=== PATIENT | female | born 1940 | race African-American/Black ===

== ENCOUNTER 2018-03-04 16:48 | Emergency (ER) | payer MEDICARE ==
[2018-03-04] MEDS: oxyCODONE/APAP 5/325 1 TAB TABLET PO (17:59)
== END 2018-03-04 20:15 | disposition home or self-care (01) ==
LOC: ER 20:15
DX: M84.374A Stress fracture, right foot, initial encounter for fracture (principal); I87.2 Venous insufficiency (chronic) (peripheral); E11.40 Type 2 diabetes mellitus with diabetic neuropathy, unspecified; I10 Essential (primary) hypertension; Z90.49 Acquired absence of other specified parts of digestive tract; Z90.710 Acquired absence of both cervix and uterus; Z98.51 Tubal ligation status; Z88.8 Allergy status to other drugs, medicaments and biological substances; X58.XXXA Exposure to other specified factors, initial encounter; Y93.89 Activity, other specified; Y92.89 Other specified places as the place of occurrence of the external cause; Y99.8 Other external cause status
CPT/HCPCS: 29515; 73630; 93005; 93970; 99284

== ENCOUNTER 2020-06-15 12:22 | Emergency (ER) | payer MEDICARE ==
[~2020-06-15] VITALS: Ht 160 cm; Wt 102.0 kg
[~2020-06-15 12:22] MED LIST: AMOX1TAB58 PO; BIOT1TAB2 PO; CEFD300C PO; CELE200C PO; CHOL20009 PO; CYCL10TA2 PO; FERR325T14 PO; FLUC100T7 PO; GABA-585 PO; GABA600T7 PO; HYDR-2145 PO; HYDR-3164 PO; HYDR12.575 PO; LACT1CAP19 PO; LINE600T12 PO; METF500T16 PO; METF500T25 PO; METH4TAB7 PO; OLME1TAB21 PO; OLME20TA17 PO; OXYC-317 PO; OXYC1TAB8 PO; SIMV20TA18 PO; TRAM50TA PO; VITA400C11 PO; WARF5TAB2 PO
[2020-06-15 13:41] LABS: BASO # 0.1 x10^3/uL (0.0-0.2); BASO % 1 % (0-3); EOS # 0.2 x10^3/uL (0.0-0.7); EOS % 2 % (0-3); HEMOGLOBIN 10.1 g/dL (12.0-15.5); LYMPH # 2.7 x10^3/uL (1.0-4.8); LYMPH % 27 % (24-48); MEAN CORPUSCULAR HEMOGLOBIN 28 pg (25-35); MEAN CORPUSCULAR HGB CONC 33 g/dL (31-37); MEAN CORPUSCULAR VOLUME 86 fL (79-100); MONO # 0.9 x10^3/uL (0.0-1.1); MONO % 9 % (0-9); NEUT # 6.1 x10^3/uL (1.8-7.7); NEUT % 61 % (31-73); PLATELET COUNT 382 x10^3/uL (140-400); RED BLOOD COUNT 3.62 x10^6/uL (3.50-5.40); RED CELL DISTRIBUTION WIDTH 14.1 % (11.5-14.5); WHITE BLOOD COUNT 10.1 x10^3/uL (4.0-11.0)
[2020-06-15 13:54] LABS: CALCIUM 10.2 mg/dL (8.5-10.1); CREATININE 1.2 mg/dL (0.6-1.0); GFR 52.6; POTASSIUM 3.9 mmol/L (3.5-5.1)
[2020-06-15 14:01] LABS: ALBUMIN 3.3 g/dL (3.4-5.0); ALBUMIN/GLOBULIN RATIO 0.8 (1.0-1.7); C-REACTIVE PROTEIN 59.2 mg/L (0-3.3); TOTAL BILIRUBIN 0.4 mg/dL (0.2-1.0); TOTAL PROTEIN 7.3 g/dL (6.4-8.2)
[2020-06-15] MEDS ORDERED: MORPHINE SULFATE 10 MG/ML VIAL. IV ONE (14:15)
[2020-06-15] MEDS ORDERED: CONTRAST GIVEN. MC PRN (14:45)
[2020-06-15] MEDS ORDERED: IOHEXOL 350 MG/ML 100 ML VIAL. IV ONE (14:45)
--- NOTE | 2020-06-15 14:49 | EKG ---
[facility] [address] [place] [address] Test Date: 2020-06-15 Test Time: 12:42:09 Pat Name: RAVI SINGLETARY Department: Room: Gender: F Production Maintenance Technician: : 1940 Requested By: ELIJAH FARIAS Order Number: [id number] Reading MD: Measurements Intervals [place] Rate: 77 P: 49 ND: 136 QRS: 62 QRSD: 80 T: 36 QT: 382 QTc: 434 Interpretive Statements SINUS RHYTHM OTHERWISE NORMAL ECG RI6.02 No previous ECG available for comparison
--- NOTE | 2020-06-15 14:51 | ED.ADGEN ---
Past Medical History Past Medical History: Diabetes-Type II, Hypertension, Other Additional Past Medical Histor: neuropathy Past Surgical History: Hysterectomy, Tonsillectomy, Tubal ligation, Other Additional Past Surgical Histo: total Rt knee, discectomy, cyst on head, uvula Smoking Status: Never Smoker Alcohol Use: None Drug Use: None General Adult EDM: Chief Complaint: SHORTNESS OF BREATH HPI: HPI: Patient is a 80-year-old female who presents to the emergency room complaining of left leg swelling and pain as well as shortness of breath. Patient had a knee replacement 2 weeks ago. She states that the swelling is gone down since surgery. She continues to wear CORDELIA hose. She states this is worse than her replacement on the right side. She ran out of her pain medicine this morning and the pain has been unbearable. She called her orthopedic surgeon who recommended she come to the emergency room for pain management and evaluation for DVT and pulmonary embolism. She did have significant shortness of breath when she got up and try to move around earlier today. Her shortness of breath is somewhat better at this time. She denies any cough or shortness of breath. She has not had any abdominal pain, nausea, vomiting, headaches, sore throat. Review of Systems: Review of Systems: Complete ROS is negative unless otherwise documented in HPI Current Medications: Current Medications Medications (Trade) Dose Ordered Sig/Karolyn Start Time Stop Time Status Last Admin Dose Admin Info (CONTRAST GIVEN -- Rx MONITORING) 1 each PRN DAILY PRN 06/15/20 14:45 06/17/20 14:44 Iohexol (Omnipaque 350 Mg/ml) 80 ml 1X ONCE 06/15/20 14:45 06/15/20 14:46 DC 06/15/20 15:10 80 ML Morphine Sulfate (Morphine Sulfate) 5 mg 1X ONCE 06/15/20 14:15 06/15/20 14:16 DC 06/15/20 15:22 5 MG Allergies: Allergies: Allergies Coded Allergies Type Severity Reaction Last Updated Verified amlodipine Allergy Severe Swelling 06/21/14 Yes lisinopril Allergy Severe Swelling 06/21/14 Yes Physical Exam: PE: General: Awake, alert, NAD. Well Nourished, well hydrated. Cooperative HEENT: Atraumatic, EOMI, PERRL, airway patent, moist oral mucosa Neck: Supple, trachea midline Respiratory: CTA bilaterally, normal effort, no wheezing/crackles CV: RRR, no murmur, cap refill <2 GI: Soft, nondistended, nontender, no masses MSK: Left knee: Bandages in place from surgery, swelling noted Skin: Warm, dry, intact Neuro: A&O x3, speech NL, sensory and motor grossly intact, no focal deficits Psych: Normal affect, normal mood, not suicidal or homicidal Current Patient Data: Labs: Laboratory Tests Test 06/15/20 12:42 06/15/20 13:35 White Blood Count 10.1 x10^3/uL (4.0-11.0) Red Blood Count 3.62 x10^6/uL (3.50-5.40) Hemoglobin 10.1 g/dL (12.0-15.5) L Hematocrit 31.0 % (36.0-47.0) L Mean Corpuscular Volume 86 fL (79-100) Mean Corpuscular Hemoglobin 28 pg (25-35) Mean Corpuscular Hemoglobin Concent 33 g/dL (31-37) Red Cell Distribution Width 14.1 % (11.5-14.5) Platelet Count 382 x10^3/uL (140-400) Neutrophils (%) (Auto) 61 % (31-73) Lymphocytes (%) (Auto) 27 % (24-48) Monocytes (%) (Auto) 9 % (0-9) Eosinophils (%) (Auto) 2 % (0-3) Basophils (%) (Auto) 1 % (0-3) Neutrophils # (Auto) 6.1 x10^3/uL (1.8-7.7) Lymphocytes # (Auto) 2.7 x10^3/uL (1.0-4.8) Monocytes # (Auto) 0.9 x10^3/uL (0.0-1.1) Eosinophils # (Auto) 0.2 x10^3/uL (0.0-0.7) Basophils # (Auto) 0.1 x10^3/uL (0.0-0.2) Sodium Level 138 mmol/L (136-145) Potassium Level 3.9 mmol/L (3.5-5.1) Chloride Level 100 mmol/L (98-107) Carbon Dioxide Level 26 mmol/L (21-32) Anion Gap 12 (6-14) Blood Urea Nitrogen 28 mg/dL (7-20) H Creatinine 1.2 mg/dL (0.6-1.0) H Estimated GFR (Cockcroft-Gault) 52.6 BUN/Creatinine Ratio 23 (6-20) H Glucose Level 131 mg/dL (70-99) H Calcium Level 10.2 mg/dL (8.5-10.1) H Total Bilirubin 0.4 mg/dL (0.2-1.0) Aspartate Amino Transferase (AST) 19 U/L (15-37) Alanine Aminotransferase (ALT) 20 U/L (14-59) Alkaline Phosphatase 64 U/L (46-116) Lactate Dehydrogenase 289 U/L (81-234) H Creatine Kinase 120 U/L (26-192) Troponin I Quantitative < 0.017 ng/mL (0.000-0.055) C-Reactive Protein, Quantitative 59.2 mg/L (0-3.3) H YD-Tlh-Z-Type Natriuretic Peptide 91 pg/mL (0-449) Total Protein 7.3 g/dL (6.4-8.2) Albumin 3.3 g/dL (3.4-5.0) L Albumin/Globulin Ratio 0.8 (1.0-1.7) L Urine Collection Type Unknown Urine Color Yellow Urine Clarity Clear Urine pH 7.0 (<5.0-8.0) Urine Specific [place] 1.010 (1.000-1.030) Urine Protein Negative mg/dL (NEG-TRACE) Urine Glucose (UA) Negative mg/dL (NEG) Urine Ketones (Stick) Negative mg/dL (NEG) Urine Blood Negative (NEG) Urine Nitrite Negative (NEG) Urine Bilirubin Negative (NEG) Urine Urobilinogen Dipstick 0.2 mg/dL (0.2 mg/dL) Urine Leukocyte Esterase Small (NEG) Urine RBC 0 /HPF (0-2) Urine WBC 5-10 /HPF (0-4) Urine Squamous Epithelial Cells Few /LPF Urine Bacteria 0 /HPF (0-FEW) Laboratory Tests 06/15/20 12:42 Laboratory Tests 06/15/20 12:42 Vital Signs: Vital Signs Date Time Temp Pulse Resp B/P (MAP) Pulse Ox O2 Delivery O2 Flow Rate FiO2 06/15/20 15:22 18 98 Room Air 06/15/20 12:25 98.2 76 154/69 (97) 98.2 EKG: EKG: [] Heart Score: Risk Factors: Risk Factors: DM, Current or recent (<one month) smoker, HTN, HLP, family history of CAD, obesity. Risk Scores: Score 0 - 3: 2.5% MACE over next 6 weeks - Discharge Home Score 4 - 6: 20.3% MACE over next 6 weeks - Admit for Clinical Observation Score 7 - 10: 72.7% MACE over next 6 weeks - Early Invasive Strategies Radiology/Procedures: Radiology/Procedures: [] Course & Med Decision Making: Course & Med Decision Making Pertinent Labs and Imaging studies reviewed. (See chart for details) Patient is 80-year-old female presents to the emergency room with swelling to her leg, pain, and shortness of breath after surgery 2 weeks ago[address] Ul[address] and CT angio will be ordered to evaluate for blood clots. She was treated with morphine for pain. Basic labs were also ordered. Patient also has urinary complaints and UA was ordered. Work-up was unremarkable. Patient is feeling significantly better. We will discharge her home and she will follow up with orthopedic surgery on Tuesday. Will prescribe her short prescription of oxycodone until she can see her orthopedic surgeon as they sent her here for pain medication. Patient's test results and vitals while in the ED were fully reviewed and discussed with the patient. Patient is stable and at this time does not need admission to the hospital. We have discussed strict return precautions and the importance of following up with their Primary Care Physician. Patient stated understanding and was given an opportunity to ask any questions. Patient is in agreement with plan. Rhianna Disclaimer: Rhianna Disclaimer: This electronic medical record was generated, in whole or in part, using a voice recognition dictation system. Departure Departure Impression: Primary Impression: Post-op pain Additional Impression: Shortness of breath Disposition: 01 DC HOME SELF CARE/HOMELESS Condition: STABLE Referrals: DAISHA PLEITEZ D.O. (PCP) Patient Instructions: Pain Relief Preoperatively and Postoperatively Scripts Albuterol Sulfate (VENTOLIN HFA INHALER) 18 Gm Hfa.aer.ad 2 PUFF INH QID for FOR ASTHMA, #1 INHALER 0 Refills Prov: ELIJAH FARIAS MD 06/15/20 Oxycodone Hcl (OXYCODONE HCL) 5 Mg Capsule 5 MG PO PRN Q6HRS PRN for PAIN, #16 TAB 0 Refills Prov: ELIJAH FARIAS MD 06/15/20 Problem Qualifiers ELIJAH FARIAS MD Jun 15, 2020 14:51
[2020-06-15 15:12] LABS: BILIRUBIN,URINE NEGATIVE (NEG); CLARITY,URINE CLEAR; COLOR,URINE YELLOW; NITRITE,URINE NEGATIVE (NEG); PROTEIN,URINE NEGATIVE (NEG-TRACE); UROBILINOGEN,URINE 0.2 mg/dL (0.2 mg/dL)
[2020-06-15 15:18] LABS: BACTERIA,URINE 0 /HPF (0-FEW); RBC,URINE 0 /HPF (0-2)
--- NOTE | 2020-06-15 15:30 | RAD ---
EXAM: CT chest with contrast - pulmonary embolus protocol CLINICAL HISTORY: Shortness of breath, recent surgery COMPARISON: None. TECHNIQUE: CT of the chest following the administration of intravenous contrast during the pulmonary arterial phase. Axial, coronal and sagittal reformatted images were generated including MIP images. ---PQRS compliance statement - One or more of the following individualized dose reduction techniques were utilized for this study: 1. Automated exposure control 2. Adjustment of the mA and/or kV according to patient size 3. Use of iterative reconstruction technique--- FINDINGS: CHEST: Diagnostic quality: Suboptimal. Pulmonary emboli: No pulmonary emboli to the level of the proximal segmental branches. More peripheral vessels are not well assessed. Right heart strain: None Pulmonary arteries: Normal in caliber. Heart is not enlarged. No pericardial effusion. No pulmonary emboli to the level of the proximal segmental branches. More peripheral vessels are not well assessed. 6 mm middle lobe lung nodule (series 8 image 22). 4 mm lingular lung nodule (image 86). Linear and bandlike opacities likely scarring/atelectasis. No abdominal or pelvic lymphadenopathy. No pleural effusion or pneumothorax. Visualized Upper abdomen: Unremarkable Bones: No aggressive osseous lesion is seen. Degenerative changes of spine are noted. IMPRESSION: 1. No pulmonary emboli to the level of the proximal segmental branches. More peripheral vessels are not well assessed. 2. Lung nodules measure up to 6 mm. Per Fleischner Society guidelines for incidentally found solid nodules measuring less than 6 mm, no follow-up is necessary if patient is considered at low risk for lung cancer. If patient is considered to be at high risk, such as with history of smoking, then CT follow-up in about 12 months can be considered. Electronically signed by: Demetrio Krause MD (06/15/2020 3:27 PM) [facility]
--- NOTE | 2020-06-15 16:09 | RAD ---
Examination: Unilateral venous Doppler. Technique: Ultrasound evaluation of the left lower extremity was performed from the groin to the upper calf with dockery scale, spectral and color doppler evaluation. Indication: Leg swelling Comparison: None Findings: There is normal venous flow and compressibility of left common femoral vein, femoral vein, popliteal vein, and visualized proximal calf veins. Small lymph nodes are seen in the left inguinal region containing fatty shanelle. The visualized soft tissue swelling at the level of the posterior knee. Impression: No evidence for deep vein thrombosis of left lower extremity from the level of the calf veins to the groins. Electronically signed by: Demetrio Krause MD (06/15/2020 4:06 PM) [facility]
[2020-06-15 16:39] VITALS: BP 144/67
[2020-06-15] MEDS ORDERED: OXYC5CAP PO (16:52)
[2020-06-15] MEDS ORDERED: VENTOLIN HFA18 GM INH (16:52)
== END 2020-06-15 17:25 | disposition home or self-care (01) ==
LOC: ER 12:22
DX: G89.18 Other acute postprocedural pain (principal); R06.02 Shortness of breath; M79.605 Pain in left leg; R22.42 Localized swelling, mass and lump, left lower limb; E11.40 Type 2 diabetes mellitus with diabetic neuropathy, unspecified; I10 Essential (primary) hypertension; Z90.710 Acquired absence of both cervix and uterus; Z98.51 Tubal ligation status; Z88.8 Allergy status to other drugs, medicaments and biological substances
CPT/HCPCS: 36415; 71275; 80053; 81001; 82550; 83615; 83880; 84484; 85025; 86140; 93005; 93971; 96374; 99285; J2270; Q9967